=== PATIENT | female | born 1970 | race Caucasian/White ===

== ENCOUNTER 2024-07-15 12:33 | Emergency (ER) | payer MEDICAID, OTHER ==
[~2024-07-15] VITALS: Ht 162.6 cm; Wt 59.1 kg
[2024-07-15 12:42] VITALS: BP 142/92; PULSE 69; RESP 16; TEMP 98.6; O2SAT 98
[2024-07-15 13:09] LABS: COVID AG,FIA SOURCE NASAL SWAB
[2024-07-15 13:30] LABS: SARS-COV2 (COVID) ANTIGEN,FIA Negative (Negative)
[2024-07-15 13:31] LABS: INFLUENZA TYPE A NEGATIVE FOR TYPE A (NEGATIVE); INFLUENZA TYPE B NEGATIVE FOR TYPE B (NEGATIVE)
[2024-07-15] MEDS: IBUPROFEN 600 MG TABLET PO ONE (14:43)
[2024-07-15] MEDS ORDERED: ACET-2247 PO (14:47)
[2024-07-15] MEDS ORDERED: IBUP-1492 PO (14:47)
== END 2024-07-15 15:02 | disposition home or self-care (01) ==
LOC: EMS 12:38
DX: B34.9 Viral infection, unspecified (principal); I10 Essential (primary) hypertension; Z20.822 Contact with and (suspected) exposure to COVID-19
CPT/HCPCS: 87430; 87804; 99283